=== PATIENT | female | born 1970 | race Hispanic/Latino ===

== ENCOUNTER 2017-12-14 08:37 | Outpatient (CLI) | payer BC | END 2017-12-14 08:38 | disposition home or self-care (01) | LOC: SPVWC 08:37 | DX: Z12.31 Encounter for screening mammogram for malignant neoplasm of breast (principal) | CPT/HCPCS: 77067 ==

== ENCOUNTER 2020-09-05 11:53 | Outpatient (CLI) | payer BC ==
--- NOTE | 2020-09-05 13:51 | Ultrasound Report ---
BILATERAL DIGITAL DIAGNOSTIC MAMMOGRAM WITH CAD CONVENTIONAL, 09/05/2020 RIGHT LIMITED BREAST ULTRASOUND CLINICAL INFORMATION / INDICATION: Patient presents for evaluation of an area of palpable concern in the right breast. TECHNIQUE: Digital bilateral mammographic imaging was performed. Spot compression views were obtained . Limited ultrasound was performed. This examination was interpreted with the benefit of Computer-Aid ed Detection (CAD) analysis. COMPARISON: Prior mammogram 12/14/2017 FINDINGS: Breast Density: There are scattered areas of fibroglandular density. MAMMOGRAPHIC FINDINGS: There are bilateral retropectoral implants. No dominant mass, suspicious calci fications, or architectural distortion in either breast. There is a stable 9 mm benign intramammary l ymph node underlying the marker denoting site of palpable concern in the upper outer quadrant of the right breast. Targeted ultrasound was performed for confirmation. ULTRASOUND FINDINGS: Targeted ultrasound evaluation was performed of the area of interest. Targeted ultrasound of the area of palpable concern in the right breast 11:00 position located 6 cm from the nipple reveals a benign intramammary lymph node measuring up to 9 mm. No suspicious sonographic abnor mality identified. IMPRESSION: 1. A benign intramammary lymph node accounts for the area of palpable concern in the right breast. No suspicious mammographic or sonographic abnormality identified. Follow up recommendation: Routine yearly BI-RADS Category 2: Benign. A "normal" or negative report should not discourage follow up or biopsy of a clinically significant f inding. A written summary of these findings will be mailed to the patient. The patient will be entered into a mammography reporting system which will generate a reminder letter for the patient's next appointmen t at the appropriate interval. According to the [employer], yearly mammograms are recommended starting at age 40 and continuing as long as a woman is in good health. Breast MRI is recommended for women with an misti roximately 20-25% or greater lifetime risk of breast cancer, including women with a strong family his tory of breast or ovarian cancer and women who have been treated for Hodgkin's disease. Signer Name: Quynh Yanez MD Signed: 09/05/2020 1:47 PM Workstation Name: [id number]
== END 2020-09-05 11:54 | disposition home or self-care (01) ==
LOC: MAMMO 11:53
PROVIDERS: ATTEND Obstetrics & Gynecology
DX: N64.89 Other specified disorders of breast (principal); R59.0 Localized enlarged lymph nodes
CPT/HCPCS: 77066

== ENCOUNTER 2021-04-07 13:50 | Outpatient (CLI) | payer BC ==
--- NOTE | 2021-04-07 14:51 | XRay Report ---
THORACIC SPINE HISTORY: Back pain. COMPARISON: None. TECHNIQUE: 3 view(s) of the thoracic spine obtained. FINDINGS: Vertebrae: Normal alignment. No fracture or significant abnormality. Disc Spaces:Very minimal spondylosis in the lower thoracic spine. Facet Joints:No significant abnormality. Prevertebral Soft Tissues:No significant abnormality. Additional findings: None. IMPRESSION: Thoracic spine without evidence of acute osseous injury. Very minimal spondylosis with lower thoracic spine. Signer Name: Krishna Treviño MD Signed: 04/07/2021 2:47 PM Workstation Name: [id number]
--- NOTE | 2021-04-07 14:56 | XRay Report ---
LEFT HIP HISTORY: Left hip pain. COMPARISON: None. TECHNIQUE: 2 views of the left hip obtained. FINDINGS: Bones: No fracture or dislocation. Joint spaces: Maintained. No significant degenerative change. Soft tissues: No significant abnormality. Additional findings: None. IMPRESSION: Unremarkable left hip radiographs. No evidence of acute osseous injury or significant degenerative ch josé miguel. Signer Name: Krishna Treviño MD Signed: 04/07/2021 2:51 PM Workstation Name: [id number]
== END 2021-04-07 13:51 | disposition home or self-care (01) ==
LOC: XRAY 13:50
PROVIDERS: ATTEND Family Medicine
DX: M25.552 Pain in left hip (principal); R10.30 Lower abdominal pain, unspecified; M47.814 Spondylosis without myelopathy or radiculopathy, thoracic region
CPT/HCPCS: 72072

== ENCOUNTER 2021-08-27 09:22 | Emergency (ER) | payer BC ==
[2021-08-27 10:00] VITALS: BP 146/77
--- NOTE | 2021-08-27 10:26 | Emergency Department Report ---
ED ENT HPI - General Chief complaint: Earache Stated complaint: CANT HEAR OUT OF EAR Time Seen by Provider: 08/27/21 09:59 Source: patient Mode of arrival: Ambulatory Limitations: No Limitations - History of Present Illness Initial comments: 50-year-old female presents to the ER today with complaints of a clogged right ear. Patient states that started last night after she put peroxide in her ear. She states that she typically put peroxide in her ear every now and then to clean it. But she states this time around, after being the peroxide, it became clogged and she has been having difficulty hearing out of the ear. She denies any pain. She denies any bleeding. complaint: other (right ear clogged) -: Last night - Related Data Previous Rx's Medication Instructions Recorded Last Taken Type Ciprofloxacin HCl/Dexameth 1 drop OTIC BID 7 Days #7.5 ml 08/27/21 Unknown Rx [Ciprodex Otic Suspension] Allergies Allergy/AdvReac Type Severity Reaction Status Date / Time No Known Allergies Allergy Unverified 09/05/20 11:54 ED Dental HPI - General Chief complaint: Earache Stated complaint: CANT HEAR OUT OF EAR Time Seen by Provider: 08/27/21 09:59 Source: patient Mode of arrival: Ambulatory Limitations: No Limitations - Related Data Previous Rx's Medication Instructions Recorded Last Taken Type Ciprofloxacin HCl/Dexameth 1 drop OTIC BID 7 Days #7.5 ml 08/27/21 Unknown Rx [Ciprodex Otic Suspension] Allergies Allergy/AdvReac Type Severity Reaction Status Date / Time No Known Allergies Allergy Unverified 09/05/20 11:54 ED Review of Systems ROS: Stated complaint: CANT HEAR OUT OF EAR Other details as noted in HPI Comment: All other systems reviewed and negative Constitutional: denies: chills, fever Eyes: denies: eye pain, eye discharge, vision change ENT: other (Clogged right ear). denies: ear pain Respiratory: denies: cough, shortness of breath, SOB with exertion, SOB at rest, wheezing Cardiovascular: denies: chest pain, palpitations Gastrointestinal: denies: abdominal pain, nausea, diarrhea, constipation, hematemesis, hematochezia Genitourinary: denies: frequency, hematuria, discharge, abnormal menses, dyspareunia Musculoskeletal: denies: back pain, joint swelling, arthralgia, myalgia Skin: denies: rash, lesions, change in color, change in hair/nails Neurological: denies: headache, weakness, numbness, paresthesias, confusion, abnormal gait, vertigo Psychiatric: denies: anxiety, depression, auditory hallucinations, visual hallucinations, homicidal thoughts, suicidal thoughts Hematological/Lymphatic: denies: easy bleeding, easy bruising ED Past Medical Hx - Past Medical History Previous Medical History?: No - Surgical History Past Surgical History?: No - Medications Home Medications: Home Medications Medication Instructions Recorded Confirmed Last Taken Type Ciprofloxacin HCl/Dexameth 1 drop OTIC BID 7 Days #7.5 ml 08/27/21 Unknown Rx [Ciprodex Otic Suspension] ED Physical Exam - General Limitations: No Limitations General appearance: alert, in no apparent distress - Head Head exam: Present: atraumatic, normocephalic, normal inspection - Expanded ENT Exam Expanded TM/Canal exam: Cerumen Impaction: Right TM Mouth exam: Present: normal external inspection - Respiratory Respiratory exam: Absent: respiratory distress - Cardiovascular Cardiovascular Exam: Present: regular rate - Neurological Exam Neurological exam: Present: alert, oriented X3 - Psychiatric Psychiatric exam: Present: normal affect, normal mood - Skin Skin exam: Present: intact ED Course Vital Signs 08/27/21 08/27/21 09:57 10:37 Temperature 98.8 F 98.1 F Pulse Rate 96 H 92 H Respiratory 18 16 Rate Blood Pressure 146/77 O2 Sat by Pulse 99 99 Oximetry - Foreign Body Removal Ear Location: ear canal (R) Foreign Body Suspected: other (Wax) Foreign Body Removed: yes Foreign Body Removal Technique: instrumentation Tympanic Membrane Intact: Yes Patient Tolerated Procedure: well, other (slight bleeding from ear canal ) Complications: bleeding Critical care attestation.: If time is entered above; I have spent that time in minutes in the direct care of this critically ill patient, excluding procedure time. ED Disposition Clinical Impression: Cerumen impaction, Abrasion of ear canal Disposition: HOME / SELF CARE / HOMELESS Is pt being admited?: No Does the pt Need Aspirin: No Condition: Stable Instructions: Ear Irrigation, Abrasion, [id number] Additional Instructions: Use antibiotic eardrops as prescribed. Recommend just clean the outside aspect of the area with a washcloth. Do not use any Q-tips or peroxide. You can follow-up with ENT as needed or your primary care doctor as needed. You can take ibuprofen if you feel any pain. Return to the ER if symptoms changes or worsens in any way. Prescriptions: Ciprofloxacin HCl/Dexameth [Ciprodex Otic Suspension] 1 drop OTIC BID 7 Days #7.5 ml Referrals: DAVID STAHL DO [Primary Care Provider] - 3-5 Days Time of Disposition: 10:29
== END 2021-08-27 10:37 | disposition home or self-care (01) ==
LOC: ED 09:22
DX: S00.411A Abrasion of right ear, initial encounter (principal); H61.21 Impacted cerumen, right ear; X58.XXXA Exposure to other specified factors, initial encounter; Y93.89 Activity, other specified; Y92.89 Other specified places as the place of occurrence of the external cause; Y99.8 Other external cause status
CPT/HCPCS: 99282